=== PATIENT | female | born 1995 | race Caucasian/White ===

== ENCOUNTER 2018-02-25 12:41 | Inpatient (IN) | payer MEDICAID ==
[2018-02-25 13:32] LABS: APPEARANCE,URINE SLIGHTLY-CLOUDY; BILIRUBIN,URINE NEGATIVE (NEGATIVE); COLOR,URINE YELLOW; GLUCOSE, URINE NEGATIVE (NEGATIVE); KETONES,URINE NEGATIVE (NEGATIVE); LEUKOCYTE ESTERASE,URINE NEGATIVE (NEGATIVE); NITRITE,URINE NEGATIVE (NEGATIVE); PROTEIN,URINE NEGATIVE (NEGATIVE); URINE SPECIFIC GRAVITY 1.019; UROBILINOGEN,URINE NEGATIVE mg/dL (<2.0)
--- NOTE | 2018-02-25 13:41 | Non Stress Test Report ---
Non Stress Test Datetime Report Generated by CPN: 02/25/2018 13:41 DEMOGRAPHIC EGA NST: 40.3 INDICATION Indication for Study: Ordered by Provider MONITORING Monitor Explained: Monitor Explained; Test Explained; Patient Verbalized Understanding Monitor Explained Other: see flowsheet Time on Monitor: 02/25/2018 13:00 Time off Monitor: 02/25/2018 13:34 NST Duration: 34 NST INTERVENTIONS NST Interventions: PO Hydration; Reposition Patient Physician Notified NST: A. Plaza, CNM BABY A: [id number] BABY A Movement : Present Contraction Frequency : irregular FHR Baseline : 125 Accelerations : 15X15 Decelerations : None Variability : Moderate 6-25bpm NST Review: Meets Criteria for Reactive NST NST Review and Verified By : SHIRLEY Zimmerman Results: Reactive NST REPORT Report Trigger: Send Report
[2018-02-25 13:50] LABS: URINE AMPHETAMINES SCREEN NEGATIVE; URINE BARBITURATES SCREEN NEGATIVE; URINE BENZODIAZEPINES SCREEN NEGATIVE; URINE COCAINE SCREEN NEGATIVE; URINE METHADONE SCREEN NEGATIVE; URINE PHENCYCLIDINE SCREEN NEGATIVE
[2018-02-25 13:55] LABS: URINE MARIJUANA (THC) SCREEN UNCONFIRMED POSITIVE
[2018-02-25] MEDS ORDERED: RINGERS SOLUTION,LACTATED 1,000 ML IV ONE (14:41)
--- NOTE | 2018-02-25 14:51 | Admission Physical ---
Datetime Report Generated by CPN: 02/25/2018 14:51 CURRENT ADMISSION Chief Complaint: Uterine Contractions Indication for Induction: Not Applicable Admit Impression : Term, Intrauterine Admit Plan: Admit to Unit; Initiate Labor Protocol ALLERGIES Medication Allergies: No Medication Allergies: No Known Allergies (02/25/2018) Latex: No Latex Allergies Food Allergies: denies Environmental Allergies: denies OBSTETRICAL HISTORY EDC: 02/22/2018 00:00 : 1 Para: 0 Gestational Diabetes: No Rh Sensitization: No Incompetent Cervix: No TYRELL: No Infertility: No ART Treatment: No Uterine Anomaly: No IUGR: No Hx Previous C/S: No Macrosomia: No Hx Loss/Stillborn: No PIH: No Hx : No Placenta Previa/Abruption: No Depression/PP Depression: Yes PTL/PROM: No Post Hemorrhage: No Obstetrical History Comments: G1: current SEE RECORDS Alcohol: No Alcohol Comments: patient in rehab in 2015 for alcohol abuse Marijuana : Yes Cocaine: No Other Illicit Drugs: No Cigarettes: Never Smoker. [id number] MEDICAL HISTORY Diabetes: No Blood Transfusion: No Pulmonary Disease (Asthma, TB): No Breast Disease: No Hypertension: No Administrative Services Officer Surgery: No Heart Disease: No Hosp/Surgery: No Autoimmune Disorder: No Anesthetic Complications: No Kidney Disease: No Abnormal Pap Smear: No Neuro/Epilepsy: No Psychiatric Disorders: No Other Medical Diseases: No Hepatitis/Liver Disease: No Significant Family History: No Varicosities/Phlebitis: No Trauma/Violence : No Thyroid Dysfunction: No Medical History Comments: history of anxiety and depression INFECTIOUS HISTORY Gonorrhea: No Genital Herpes: No Chlamydia: No Tuberculosis: No Syphilis: No Hepatitis: No HIV/AIDS Exposure: No Rash or Viral Illness: No HPV: No PHYSICAL EXAM General: Normal HEENT: Normal Neurologic: Normal Thyroid: Deferred Heart: Normal Lungs: Normal Breast: Deferred Back: Normal Abdomen: Normal Genitourinary Exam: Normal Extremities: Normal DTRs: Deferred Pelvic Type: Adequate Vital Signs: Reviewed VAGINAL EXAM Dilatation: 4 Effacement: 90 Station: -2 Contraction Comments: q3 mins MEMBRANES Membranes: Bulging FETUS A EGA: 40.3 Monitoring: External US FHR- Baseline: 125 Variability: Moderate 6-25bpm Accelerations: 15X15 Decelerations: None Estimated Weight (gm): 3300 Admit Comment: 22 yo at 40+3 by LMP c/w 34 w sono. late to care-limited care on transfer. marijuana and CBD oil use in . hx alcohol abuse with rehab 2016. anatomy scan by MFM with limited views of extremeties d/t gestational age. hx depression/anxiety/PTSD. P: admit for labor, anticipate , pt plans epidural for pain. discharge planning consult PLANS FOR LABOR AND DELIVERY Labor and Delivery: None Pain Management: Epidural Feeding Preference: Breast Benefit of Breast Feed Discussed: Yes Circumcision: N/A INFORMED CONSENT Assignment: Stephanie Valdez MD Signature: with User ID: [email or web address] : with User ID: [email or web address]
[2018-02-25] MEDS ORDERED: LIDOCAINE 1% INJ-PF (10 MG/ML) 30 ML SDV ONE (15:01)
[2018-02-25] MEDS ORDERED: MISOPROSTOL 0.2 MG TABLET ONE (15:01)
[2018-02-25] MEDS ORDERED: OXYTOCIN/NORMAL SALINE 20 UNIT/1,000 ML RTUINJ ONE (15:01)
[2018-02-25 15:11] LABS: HEMATOCRIT 36.4 % (36.0-47.0); HEMOGLOBIN 12.3 g/dL (12.0-15.5); MEAN CORPUSCULAR HEMOGLOBIN 29.1 pg (27.0-33.4); MEAN CORPUSCULAR HGB CONC 33.7 g/dL (32.0-36.0); MEAN CORPUSCULAR VOLUME 86 fl (80-97); PLATELET COUNT 234 10^3/uL (150-450); RED BLOOD COUNT 4.22 10^6/uL (3.72-5.28); RED CELL DISTRIBUTION WIDTH 15.1 % (11.5-14.0); WHITE BLOOD COUNT 14.5 10^3/uL (4.0-10.5)
[2018-02-25] MEDS ORDERED: EPHEDRINE SULFATE INJ 50 MG/1 ML AMPULE ONE (15:17)
[2018-02-25] MEDS ORDERED: BUPIVACAINE HCL 0.25 % INJ/PF (2.5 MG/1 ML) 30 ML VIAL ONE (15:18)
[2018-02-25] MEDS ORDERED: FENTANYL/BUPIVACAINE/NS/PF 300 MCG/150 ML RTUINJ EPI ONE (15:18)
[2018-02-25] MEDS ORDERED: FENTANYL CITRATE INJ/PF 100 MCG/2 ML AMPUL ONE (15:19)
[2018-02-25] MEDS ORDERED: PHENYLEPHRINE HCL INJ/PF 10 MG/1 ML SDV ONE (15:19)
[2018-02-25] MEDS ORDERED: LIDOCAINE 1.5%/EPINEPHRINE INJ-PF 30 ML SDV ONE (15:53)
--- NOTE | 2018-02-25 17:24 | L&D Progress Notes ---
PROGRESS NOTES Datetime Report Generated by CPN: 02/25/2018 17:23 PROGRESS NOTE Impression: Normal Progression of Labor Procedures: Artificial ROM; Sterile Vag Exam Plan: Continue Present Management Plan Other: ephedrine given Informed Consent Obtained: Vaginal Delivery Vital Signs : Reviewed; Within Normal Limits Vital Signs Comments: low BP after epidural Comment: in active labor. had ephedrine for low BP and FHT decels after epidural. once baby recovered, AROM for thick mec and subsequent prolonged decel for 5 mins to 90 resolved with position change and IVF bolus. variable decels with contractions, Dr Valdez in and ephedrine given again. pt stable. FHT stable. dr Valdez managing care. appropriate cervical change. P: continue current care, anticipate . VAGINAL EXAM Dilatation: 6 Dilatation: 4 Effacement: 90 Effacement: 90 Station: -2 Station: -2 Contractions: q4 mins Contractions: q3 mins MEMBRANES Membranes: Ruptured Membranes: Bulging Amniotic Fluid Color: Meconium, Heavy FETUS A FHR - Baseline: 135 Monitoring: External US Accelerations: 15X15 Decelerations: Variable; Prolonged : 40+3 : 40+3 Estimated Weight (gm): 3300 SIGNATURE SIGNATURE: 10,[id number];14,[id number];13,[id number] SIGNATURE: ,[id number];[id number] SIGNATURE: [id number] Assignment: Stephanie Valdez MD Signature: with User ID: [email or web address] : with User ID: [email or web address]
[2018-02-25] MEDS ORDERED: BENZOCAINE/MENTHOL AEROSOL SPRAY 56 ML TOP PRN (20:33)
[2018-02-25] MEDS ORDERED: GLYCERIN/WITCH HAZEL LEAF 1 EACH MED..PAD TP PRN (20:33)
[2018-02-25] MEDS ORDERED: OXYTOCIN/NORMAL SALINE 20 UNIT/1,000 ML RTUINJ IV PRN (20:33)
[2018-02-25] MEDS ORDERED: DIBUCAINE 1% OINTMENT 28 GM TP PRN (20:33)
[2018-02-25] MEDS ORDERED: ACETAMINOPHEN 325 MG TABLET PO PRN (20:33)
[2018-02-25] MEDS ORDERED: PROMETHAZINE HCL 25 MG SUPP.RECT PR PRN (20:33)
[2018-02-25] MEDS ORDERED: PROMETHAZINE HCL INJ 25 MG/1 ML VIAL IV PRN (20:33)
[2018-02-25] MEDS ORDERED: PSEUDOEPHEDRINE HCL 30 MG TABLET PO PRN (20:33)
[2018-02-25] MEDS ORDERED: DIPH/PERTUSS(ACELL)/TETANUS VAC/PF 0.5 ML SYR (>=10YO) IM PRN (20:33)
[2018-02-25] MEDS ORDERED: MAGNESIUM HYDROXIDE SUSP 30 ML UDCUP PO PRN (20:33)
[2018-02-25] MEDS ORDERED: NA PHOS,M-B/NA PHOS,DI-BA (ADULT) 133 ML ENEMA PR PRN (20:33)
[2018-02-25] MEDS ORDERED: MEASLES,MUMPS&RUBELLA VACC/PF 0.5 ML VIAL SUBCUT PRN (20:33)
[2018-02-25] MEDS ORDERED: PROMETHAZINE HCL 25 MG TABLET PO PRN (20:33)
[2018-02-25] MEDS ORDERED: ACETAMINOPHEN WITH CODEINE #3 TABLET PO PRN ×2 (20:33)
[2018-02-25] MEDS ORDERED: DIPHENHYDRAMINE HCL 25 MG CAPSULE PO PRN (20:33)
[2018-02-25] MEDS ORDERED: ZOLPIDEM TARTRATE 5 MG TABLET PO PRN (20:33)
[2018-02-25] MEDS ORDERED: VARICELLA VACC/PF (1350 UNIT/0.5 ML) 0.5 ML VIAL SUBCUT ONE (21:13)
--- NOTE | 2018-02-25 21:46 | Delivery Summary ---
Del Sum A-C Datetime Report Generated by CPN: 02/25/2018 21:45 DELIVERY PERSONNEL DELIVERY PERSONNEL: [id number] Delivery Doctor:: Stephanie Valdez MD Anesthesiologist:: Deyanira Vargas MD Labor and Delivery Nurse:: Andreea Mckeon RNtest center manager Nurse:: Tatiana Rivas RN Nursery Nurse:: Gaviota Gresham RN Woods Boss/PRESIDENT PRACTICING UROLOGIST: Cande Short CNA MATERNAL INFORMATION Delivery Anesthesia: Epidural Medications After Delivery: Pitocin Bolus-Please Comment Maternal Complications: None LABOR SUMMARY EDC: 02/22/2018 00:00 Attempted: No Labor Anesthesia: Epidural LABOR INFORMATION Reason for Induction: Not Applicable Onset of Labor: 02/25/2018 14:35 Complete Dilatation: 02/25/2018 19:26 Oxytocin: N/A Group B Beta Strep: negative Antibiotics # of Doses: 0 Antibiotics Time of Last Dose: n/a Name of Antibiotic Given: n/a MEMBRANES Membranes Rupture Method: Artificial Rupture of Membranes: 02/25/2018 16:57 Length of Rupture (hr): 3.12 Amniotic Fluid Color: Heavy Meconium Amniotic Fluid Amount: Moderate STAGES OF LABOR Stage 1 hr: 4 Stage 1 min: 51 Stage 2 hr: 0 Stage 2 min: 38 Stage 3 hr: 0 Stage 3 min: 4 Total Time in Labor hr: 5 Total Time in Labor min: 33 VAGINAL DELIVERY Episiotomy: None Other Laceration: left labial laceration Laceration Repair: Yes Sponge Count Correct: N/A Sharps Count Correct: Yes CSECTION DELIVERY Primary Indication: N/A Secondary Indication: N/A CSection Incidence: N/A Labor: N/A Elective: N/A CSection Incision: N/A BABY A INFORMATION Delivery Date/Time: 02/25/2018 20:04 Method of Delivery: Vaginal Born in Route : No : N/A Forceps: N/A Vacuum Extraction: N/A Shoulder Dystocia : No PRESENTATION/POSITION BABY A Presentation: Cephalic Cephalic Presentation: Vertex Vertex Position: Right Occipital Anterior Breech Presentation: N/A PLACENTA INFORMATION BABY A Placenta Delivery Time : 02/25/2018 20:08 Placenta Method of Delivery: Spontaneous Placenta Status: Delivered SCORES BABY A Heart Rate 1 min: >100 bpm Resp Effort 1 min: Slow, Irregular Reflex Irritability 1 min: Grimace Muscle Tone 1 min: Some Flexion of Extremities Color 1 min: Body [place], Extremities Blue Resuscitation Effort 1 min: Tactile Stimulation SCORE 1 MIN: 6 Heart Rate 5 min: >100 bpm Resp Effort 5 min: Good Cry Reflex Irritability 5 min: Cough or Sneeze or Pulls Away Muscle Tone 5 min: Active Motion Color 5 min: Body [place], Extremities Blue Resuscitation Effort 5 min: Tactile Stimulation; Oxygen SCORE 5 MIN: 9 INFANT INFORMATION BABY A Gestational Age at Delivery: 40.3 Gestational Status: Full Term- 39- 40.6 Weeks Infant Outcome : Liveborn Condition : Fair Infant Sex: Female IDENTIFICATION BABY A Infant Verification Date/Time: 02/25/2018 20:12 ID Band Number: [id number] Mother's Name Verified: Yes RN Verifying : CBenedicto Garcia, RN Additional Verifying Personnel: Parth Molina WEIGHT/LENGTH BABY A Birthweight (gm): 3290 Infant Weight (lb): 7 Weight (oz): 4 Infant Length (in): 20.50 Infant Length (cm): 52.07 CORD INFORMATION BABY A No. Cord Vessels: 3 Nuchal Cord : N/A Cord Blood Taken: Yes-For Storage (Mom's Blood type +) Suction: Mouth; Nose; Pharynx ASSESSMENT BABY A Infant Complications: Multiple Variable Decels; Meconium Physical Findings at Delivery: Molding of the Head Respirations: Grunting Skin to Skin: No Utility Pipe Layer/ALS Called : No Care By: Mallorie Gresham RN/ Tanner Rivas RN Transferred To: Nursery BABY B INFORMATION : N/A SIGNATURES : I was personally available for consultation and serving as supervising physician for the MLP.
[2018-02-25] MEDS: FAMOTIDINE 20 MG TABLET PO SCH (23:16)
[2018-02-25] MEDS: IBUPROFEN 800 MG TABLET PO SCH (23:16)
[2018-02-26] MEDS: IBUPROFEN 800 MG TABLET PO SCH ×3 (05:49→21:10)
[2018-02-26 07:43] LABS: HEMATOCRIT 33.2 % (36.0-47.0); HEMOGLOBIN 11.1 g/dL (12.0-15.5); MEAN CORPUSCULAR HEMOGLOBIN 29.1 pg (27.0-33.4); MEAN CORPUSCULAR HGB CONC 33.5 g/dL (32.0-36.0); MEAN CORPUSCULAR VOLUME 87 fl (80-97); PLATELET COUNT 200 10^3/uL (150-450); RED BLOOD COUNT 3.83 10^6/uL (3.72-5.28); RED CELL DISTRIBUTION WIDTH 15.3 % (11.5-14.0); WHITE BLOOD COUNT 14.6 10^3/uL (4.0-10.5)
--- NOTE | 2018-02-26 08:38 | Delivery Summary ---
Del Sum A-C Datetime Report Generated by CPN: 02/26/2018 08:38 DELIVERY PERSONNEL DELIVERY PERSONNEL: [id number] Delivery Doctor:: Stephanie Valdez MD Anesthesiologist:: Deyanira Vargas MD Labor and Delivery Nurse:: Andreea Mckeon RNdirector diabetes Nurse:: Tatiana Rivas RN Nursery Nurse:: Gaviota Gresham RN Tire Bladder Maker/WIRE BOUND BOX MACHINE OPERATOR: Cande Short CNA MATERNAL INFORMATION Delivery Anesthesia: Epidural Medications After Delivery: Pitocin Bolus-Please Comment Maternal Complications: None Provider Comments: VFI delivered in [place] presentation with loose nuchal cord. Shoulders and body delivered without difficulty. Cord doubly clamped and cut and infant to maternal abd for NRP. Nursery in attendance due to meconium. Placenta delivered intact spontaneously. FF at U. Good uterine tone. Good hemostasis after repair of labial laceration. Mother and baby stable upon provider leaving the room. LABOR SUMMARY EDC: 02/22/2018 00:00 Attempted: No Labor Anesthesia: Epidural LABOR INFORMATION Reason for Induction: Not Applicable Onset of Labor: 02/25/2018 14:35 Complete Dilatation: 02/25/2018 19:26 Oxytocin: N/A Group B Beta Strep: negative Antibiotics # of Doses: 0 Antibiotics Time of Last Dose: n/a Name of Antibiotic Given: n/a MEMBRANES Membranes Rupture Method: Artificial Rupture of Membranes: 02/25/2018 16:57 Length of Rupture (hr): 3.12 Amniotic Fluid Color: Heavy Meconium Amniotic Fluid Amount: Moderate STAGES OF LABOR Stage 1 hr: 4 Stage 1 min: 51 Stage 2 hr: 0 Stage 2 min: 38 Stage 3 hr: 0 Stage 3 min: 4 Total Time in Labor hr: 5 Total Time in Labor min: 33 VAGINAL DELIVERY Episiotomy: None Laceration #1: Vaginal Laceration Extension #1: N/A Other Laceration: left labial laceration Laceration Repair: Yes Laceration Repair Note: left labial laceration repaired in 2 layers Sponge Count Correct: Yes Sharps Count Correct: Yes CSECTION DELIVERY Primary Indication: N/A Secondary Indication: N/A CSection Incidence: N/A Labor: N/A Elective: N/A CSection Incision: N/A BABY A INFORMATION Infant Delivery Date/Time: 02/25/2018 20:04 Method of Delivery: Vaginal Born in Route : No : N/A Forceps: N/A Vacuum Extraction: N/A Shoulder Dystocia : No PRESENTATION/POSITION BABY A Presentation: Cephalic Cephalic Presentation: Vertex Vertex Position: Right Occipital Anterior Breech Presentation: N/A PLACENTA INFORMATION BABY A Placenta Delivery Time : 02/25/2018 20:08 Placenta Method of Delivery: Spontaneous Placenta Status: Delivered SCORES BABY A Heart Rate 1 min: >100 bpm Resp Effort 1 min: Slow, Irregular Reflex Irritability 1 min: Grimace Muscle Tone 1 min: Some Flexion of Extremities Color 1 min: Body [place], Extremities Blue Resuscitation Effort 1 min: Tactile Stimulation SCORE 1 MIN: 6 Heart Rate 5 min: >100 bpm Resp Effort 5 min: Good Cry Reflex Irritability 5 min: Cough or Sneeze or Pulls Away Muscle Tone 5 min: Active Motion Color 5 min: Body [place], Extremities Blue Resuscitation Effort 5 min: Tactile Stimulation; Oxygen SCORE 5 MIN: 9 INFORMATION BABY A Gestational Age at Delivery: 40.3 Gestational Status: Full Term- 39- 40.6 Weeks Infant Outcome : Liveborn Condition : Fair Infant Sex: Female IDENTIFICATION BABY A Verification Date/Time: 02/25/2018 20:12 ID Band Number: [id number] Mother's Name Verified: Yes Infant RN Verifying : CBenedicto Akhtarilin, RN Additional Verifying Personnel: D. Tracy WEIGHT/LENGTH BABY A Infant Birthweight (gm): 3290 Infant Weight (lb): 7 Infant Weight (oz): 4 Length (in): 20.50 Length (cm): 52.07 CORD INFORMATION BABY A No. Cord Vessels: 3 Nuchal Cord : N/A Cord Blood Taken: Yes-For Storage (Mom's Blood type +) Infant Suction: Mouth; Nose; Pharynx ASSESSMENT BABY A Infant Complications: Multiple Variable Decels; Meconium Physical Findings at Delivery: Molding of the Head Infant Respirations: Grunting Skin to Skin: No Cattle Killer/ALS Called : No Care By: Mallorie Gresham RN/ K Rob RN Transferred To: Nursery BABY B INFORMATION : N/A SIGNATURES Signature: with User ID: [email or web address] : I was personally available for consultation and serving as supervising physician for the MLP. : I was personally available for consultation and serving as supervising physician for the MLP.
[2018-02-26] MEDS: SENNOSIDES/DOCUSATE 8.6-50 MG 1 EACH TABLET PO SCH (10:47)
[2018-02-26] MEDS: PRENATAL VITAMIN W DHA CAPSULE PO SCH (10:47)
[2018-02-26] MEDS: DOCUSATE SODIUM 100 MG CAPSULE PO SCH ×2 (10:47→18:04)
[2018-02-26] MEDS: FAMOTIDINE 20 MG TABLET PO SCH ×2 (10:48→21:10)
[2018-02-26] MEDS: FERROUS SULFATE 325 MG TABLET PO SCH ×2 (10:48→18:04)
--- NOTE | 2018-02-26 16:00 | PDOC PROGRESS REPORT ---
Subjective-OB Progress Note for:: 02/26/18 Subjective: s/p day #1 Denies concerns, states lochia is stable, pain well controlled, voiding without difficulty. Physical Exam (OB) Vital Signs: Temp Pulse Resp BP Pulse Ox 97.5 F 81 17 124/67 100 02/26/18 08:24 02/26/18 08:24 02/26/18 08:24 02/26/18 08:24 02/26/18 08:24 Intake & Output 02/25/18 02/26/18 02/27/18 06:59 06:59 06:59 Weight 83.9 kg - Lochia Lochia Amount: Small 10-25 ml Lochia Color: Rubra/Red - Abdomen Description: Soft Hernia Present: No Fundal Description: Firm, Midline Fundal Height: u/u - u/2 Objective-Diagnostic Laboratory: 02/26/18 07:22 02/25/18 02/26/18 14:53 07:22 WBC 14.6 H RBC 3.83 Hgb 11.1 L Hct 33.2 L MCV 87 MCH 29.1 MCHC 33.5 RDW 15.3 H Plt Count 200 Blood Type A POSITIVE Antibody Screen NEGATIVE Assessment and Plan(PN) - Assessment and Plan (1) Active labor at term Is this a current diagnosis for this admission?: Yes Plan: deliver (2) Adolescent Is this a current diagnosis for this admission?: Yes Plan: d/c category planner close follow up (3) Anxiety and depression Is this a current diagnosis for this admission?: Yes Plan: d/c category planner close follow up (4) Depression Qualifiers: Depression Type: unspecified Qualified Code(s): F32.9 - Major depressive disorder, single episode, unspecified Is this a current diagnosis for this admission?: Yes Plan: d/c category planner close follow up (5) Drug use affecting Qualifiers: Trimester: third trimester Qualified Code(s): O99.323 - Drug use complicating , third trimester Is this a current diagnosis for this admission?: Yes Plan: d/c category planner close follow up (6) Limited care Qualifiers: Trimester: third trimester Qualified Code(s): O09.33 - Supervision of with insufficient care, third trimester Is this a current diagnosis for this admission?: Yes Plan: d/c category planner close follow up (7) Meconium in amniotic fluid Is this a current diagnosis for this admission?: Yes (8) PTSD (post-traumatic stress disorder) Is this a current diagnosis for this admission?: Yes Plan: d/c category planner close follow up - Time Spent with Patient Time with patient: Less than 15 minutes Critical Time spent with patient: Less than 15 minutes Medications reviewed and adjusted accordingly: Yes - Disposition Anticipated Discharge: Home
[2018-02-27] MEDS: IBUPROFEN 800 MG TABLET PO SCH ×3 (05:30→22:30)
--- NOTE | 2018-02-27 10:03 | PDOC PROGRESS REPORT ---
Subjective-OB Progress Note for:: 02/27/18 Subjective: s/p day #2 Pt states she is not ready for discharge d/t baby having to stay, is , lochia is stable pain well controlled, voiding without difficulty. Physical Exam (OB) Vital Signs: Temp Pulse Resp BP Pulse Ox 98.3 F 72 17 134/73 H 100 02/27/18 08:46 02/27/18 08:46 02/27/18 08:46 02/27/18 08:46 02/27/18 08:46 Intake & Output 02/26/18 02/27/18 02/28/18 06:59 06:59 06:59 Weight 83.9 kg - Lochia Lochia Amount: Scant < 10 ml Lochia Color: Rubra/Red - Abdomen Description: Soft Hernia Present: No Fundal Description: Firm, Midline Fundal Height: u/u - u/2 Objective-Diagnostic Laboratory: 02/26/18 07:22 Assessment and Plan(PN) - Assessment and Plan (1) Active labor at term Is this a current diagnosis for this admission?: Yes Plan: n/a (2) Adolescent Is this a current diagnosis for this admission?: Yes Plan: d/c production planner scheduler (3) Anxiety and depression Is this a current diagnosis for this admission?: Yes Plan: close pp f/u (4) Depression Qualifiers: Depression Type: unspecified Qualified Code(s): F32.9 - Major depressive disorder, single episode, unspecified Is this a current diagnosis for this admission?: Yes Plan: close f/u (5) Drug use affecting Qualifiers: Trimester: third trimester Qualified Code(s): O99.323 - Drug use complicating , third trimester Is this a current diagnosis for this admission?: Yes (6) Limited care Qualifiers: Trimester: third trimester Qualified Code(s): O09.33 - Supervision of with insufficient care, third trimester Is this a current diagnosis for this admission?: Yes (7) Meconium in amniotic fluid Is this a current diagnosis for this admission?: Yes (8) PTSD (post-traumatic stress disorder) Is this a current diagnosis for this admission?: Yes (9) Vaginal delivery Is this a current diagnosis for this admission?: Yes Plan: routine pp care - Time Spent with Patient Time with patient: Less than 15 minutes Critical Time spent with patient: Less than 15 minutes Medications reviewed and adjusted accordingly: Yes - Disposition Anticipated Discharge: Home Within: within 24 hours
[2018-02-27] MEDS: PRENATAL VITAMIN W DHA CAPSULE PO SCH (10:54)
[2018-02-27] MEDS: DOCUSATE SODIUM 100 MG CAPSULE PO SCH ×2 (10:54→18:13)
[2018-02-27] MEDS: FERROUS SULFATE 325 MG TABLET PO SCH ×2 (10:54→18:13)
[2018-02-27] MEDS: FAMOTIDINE 20 MG TABLET PO SCH ×2 (10:54→22:31)
[2018-02-27] MEDS: SENNOSIDES/DOCUSATE 8.6-50 MG 1 EACH TABLET PO SCH (10:54)
[2018-02-28] MEDS: IBUPROFEN 800 MG TABLET PO SCH ×2 (05:57→14:00)
[2018-02-28] MEDS: PRENATAL VITAMIN W DHA CAPSULE PO SCH (10:19)
[2018-02-28] MEDS: SENNOSIDES/DOCUSATE 8.6-50 MG 1 EACH TABLET PO SCH (10:19)
[2018-02-28] MEDS: FAMOTIDINE 20 MG TABLET PO SCH (10:20)
[2018-02-28] MEDS: DOCUSATE SODIUM 100 MG CAPSULE PO SCH ×2 (10:20→17:32)
[2018-02-28] MEDS: FERROUS SULFATE 325 MG TABLET PO SCH ×2 (10:20→17:32)
--- NOTE | 2018-02-28 11:04 | PDOC PROGRESS REPORT ---
Subjective-OB Progress Note for:: 02/28/18 Subjective: Doing well, ready to go home, unsure if baby will go, on antibiotics, Anxiety under cointrol, no meds, voiding, eating well Physical Exam (OB) Vital Signs: Temp Pulse Resp BP Pulse Ox 98.4 F 80 17 118/76 100 02/28/18 07:33 02/28/18 07:33 02/27/18 19:59 02/28/18 07:33 02/28/18 07:33 - PIH/Pre-Eclampsia DTR's: 1 + Clonus: Negative Headache: Absent Epigastric Pain: No Visual Changes: No - Lochia Lochia Amount: Scant < 10 ml Lochia Color: Rubra/Red - Abdomen Description: Soft, Round Hernia Present: Yes Fundal Description: Firm, Midline Fundal Height: u/u - u/2 Objective-Diagnostic Laboratory: 02/26/18 07:22 Assessment and Plan(PN) - Assessment and Plan (1) Meconium in amniotic fluid Is this a current diagnosis for this admission?: Yes (2) Vaginal delivery Is this a current diagnosis for this admission?: Yes (3) Adolescent Is this a current diagnosis for this admission?: Yes (4) PTSD (post-traumatic stress disorder) Is this a current diagnosis for this admission?: Yes (5) Anxiety and depression Is this a current diagnosis for this admission?: Yes (6) Drug use affecting Qualifiers: Trimester: third trimester Qualified Code(s): O99.323 - Drug use complicating , third trimester Is this a current diagnosis for this admission?: Yes - Time Spent with Patient Time with patient: Less than 15 minutes Medications reviewed and adjusted accordingly: Yes - Disposition Anticipated Discharge: Home Within: Other - home today
--- NOTE | 2018-02-28 11:08 | PDOC DISCHARGE SUMMARY ---
Final Diagnosis Discharge Date: 02/28/18 - Final Diagnosis (1) Meconium in amniotic fluid Is this a current diagnosis for this admission?: Yes (2) Vaginal delivery Is this a current diagnosis for this admission?: Yes (3) Adolescent Is this a current diagnosis for this admission?: Yes (4) PTSD (post-traumatic stress disorder) Is this a current diagnosis for this admission?: Yes (5) Anxiety and depression Is this a current diagnosis for this admission?: Yes (6) Drug use affecting Is this a current diagnosis for this admission?: Yes Discharge Data - Discharge Medication Prescriptions: Ibuprofen [Motrin 800 mg Tablet] 800 mg PO Q8 #60 tablet Home Medications: No122/Iron/Folic Acid [ Multi Tablet] 1 each PO DAILY 02/25/18 Ibuprofen [Motrin 800 mg Tablet] 800 mg PO Q8 #60 tablet 02/28/18 Gestational Age: 40.3 Reason(s) for Admission: Onset of Labor Procedures: NST, Ultrasound Intrapartum Procedure(s): Spontaneous Vaginal Delivery Complication(s): Laceration-Labial Laceration-Degree: 1st - Data Baby 1 Female at 1 minute: 6 at 5 minutes: 9 Weight: 3.289 kg Home with Mother: No Complications: Yes - Diagnosis Test Laboratory: Temp Pulse Resp BP Pulse Ox 98.4 F 80 17 118/76 100 02/28/18 07:33 02/28/18 07:33 02/27/18 19:59 02/28/18 07:33 02/28/18 07:33 02/25/18 02/25/18 02/26/18 12:49 14:53 07:22 RBC 4.22 3.83 Hgb 12.3 11.1 L Hct 36.4 33.2 L Urine Opiates Screen NEGATIVE - Discharge information/Instructions Discharge Activity: Activity As Tolerated, No Lifting Over 10 Pounds, No Lifting /Push/Pulling Discharge Diet: As Tolerated, Regular Disposition: HOME, SELF-CARE Follow up with: [facility] in: 2, Weeks
[2018-02-28 11:39] VITALS: BP 124/69
== END 2018-02-28 18:09 | disposition home or self-care (01) | DRG 775 ==
LOC: LC 12:41 → LR 14:47 → 2S 22:47
PROVIDERS: ADMIT Student in an Organized Health Care Education/Training Program; ATTEND Student in an Organized Health Care Education/Training Program
PROC: 10E0XZZ Delivery of Products of Conception, External Approach (ICD-10-PCS; principal; 2018-02-25)
PROC: 0HQ9XZZ Repair Perineum Skin, External Approach (ICD-10-PCS; 2018-02-25)
DX: O99.324 Drug use complicating childbirth (principal); O76 Abnormality in fetal heart rate and rhythm complicating labor and delivery; O69.81X0 Labor and delivery complicated by cord around neck, without compression, not applicable or unspecified; O77.0 Labor and delivery complicated by meconium in amniotic fluid; F12.90 Cannabis use, unspecified, uncomplicated; F41.8 Other specified anxiety disorders; F43.10 Post-traumatic stress disorder, unspecified; O70.0 First degree perineal laceration during delivery; Z3A.40 40 weeks gestation of pregnancy; Z37.0 Single live birth
CPT/HCPCS: 36415; 59025; 80307; 81005; 85027; 86592; 86850; 86900; 86901; 90716; 94760; G0480; J2370; J2590; J3010; J3490